=== PATIENT | male | born 1990 | race American Indian/Alaskan Native ===

== ENCOUNTER 2021-09-12 11:56 | Emergency (ER) | payer BC ==
[~2021-09-12] VITALS: Ht 175.3 cm; Wt 109.1 kg
[2021-09-12 12:18] VITALS: TEMP 98.1
[2021-09-12] MEDS ORDERED: CARAFATE 1GM1 G PO (14:20)
[2021-09-12 15:26] VITALS: BP 120/72; PULSE 67
== END 2021-09-12 15:26 | disposition home or self-care (01) ==
LOC: COL.ER 11:56
DX: R07.89 Other chest pain (principal); R13.10 Dysphagia, unspecified; Z28.310 Unvaccinated for COVID-19